=== PATIENT | male | born 1945 | race Caucasian/White ===

== ENCOUNTER 2019-04-22 15:58 | Inpatient (IN) | payer MEDICARE, SELFPAY ==
[2019-04-22 15:59] VITALS: BP 171/101; PULSE 141; RESP 20; TEMP 37.6; O2SAT 92; BMI 31.4
--- NOTE | 2019-04-22 16:01 | ED_ITS ---
Entered by Cassy Ackerman, acting as scribe for Doc Mgcill DO Documented by User: Doc Mcgill DO 04/26/19 07:50 HPI - General Adult General: Chief complaint: Abdominal Pain Stated complaint: ABD PAIN Time Seen by Provider: 04/22/19 16:05 History of Present Illness: HPI narrative: 73 yo male presents with abd pain. Pt states that he has had an impacted colon before. Pt states that he takes mirilax regularly. Pt states that he took double the dose today. Pt states that he has been incontinent urine twice today. MD complaint: abd pain Associated symptoms: Reports nausea; Deny chest pain, dyspnea, malaise, rash or vomiting Review of Systems Const: Denies: fever, chills, body aches, change in appetite, fatigue or malaise ENMT: Denies: throat pain, ear pain, nasal discharge or nasal congestion Card: Denies: chest pain, edema, shortness of breath on exertion or shortness of breath when lying down Resp: Denies: shortness of breath, productive cough or non-productive cough GI: Reports: abdominal pain, nausea and constipation; Denies: vomiting, vomiting blood, coffee grounds in vomit, diarrhea, bloating, blood in stool or black tarry stool : Denies: flank pain, painful urination, urinary frequency or urinary urgency Skin/Breast: Denies: rash or itching PFSH ED PFSH: Statuses (acute, chronic, etc) shown below reflect problem list status as previously entered and may not be historically accurate Medical History Gout (Acute) History of pulmonary embolism (Acute) Rheumatoid arteritis (Acute) Rheumatoid arthritis (Acute) Surgical History History of heart surgery (Acute) S/P CABG x 4 (Acute) Social History Smoking and tobacco status: never smoked Alcohol intake: current Alcohol intake frequency: 0-2 Drinks per Day Marital status: Physical Exam Const: COMMON NORMALS: no apparent distress GENERAL APPEARANCE: cooperative and comfortable ORIENTATION/CONSCIOUSNESS: Yes awake, Yes oriented to person, Yes oriented to place and Yes oriented to time HENMT: COMMON NORMALS: normocephalic, head/scalp atraumatic, hearing grossly normal bilaterally, external ears normal, EAC's normal, TM's normal bilaterally, nasal mucous membranes and turbinates normal, moist oral mucous membranes and oropharynx normal HEAD & SCALP: normocephalic and atraumatic NOSE: nasal mucous membranes and turbinates normal EXTERNAL EAR: Yes external ears normal EXTERNAL AUDITORY CANAL: EAC's normal TYMPANIC MEMBRANE: TM's normal bilaterally Eye: COMMON NORMALS: PERRL, EOMs intact bilaterally, conjunctivae normal and no scleral icterus CONJUNCTIVA: Yes conjunctivae normal PUPIL: Yes PERRL Neck/C-Spine: COMMON NORMALS: full ROM, no lymphadenopathy, supple and no JVD Lymph: LYMPHATIC: no lymphadenopathy noted and no lymphedema noted Resp: COMMON NORMALS: normal respiratory effort, no retractions, no use of accessory muscles and clear to auscultation bilaterally AUSCULTATION: clear to auscultation bilaterally Cardio: COMMON NORMALS: no JVD, regular rate, regular rhythm and no murmurs RATE: regular rate RHYTHM: regular rhythm GI: COMMON NORMALS: soft to palpation AUSCULTATION: Yes normoactive bowel sounds PALPATION: Yes soft, Yes tender (diffuse ) and No guarding Extremity: COMMON NORMALS: normal to inspection, normal capillary refill, no clubbing, cyanosis or edema, no calf tenderness and no pedal edema Neuro: SENSORIUM/ORIENTATION: Yes oriented to person, Yes oriented to place and Yes oriented to time Skin: COMMON NORMALS: no rashes or lesions noted GENERAL SKIN EXAM: no rashes or lesions noted Course ED course: Initial labs ordered by myself care transferred to Dr. Bergeron at change of shift. Vital Signs: Vital signs: Vital Signs Temperature 98.7 F 04/26/19 07:36 Pulse Rate 106 H 04/26/19 07:36 Respiratory Rate 18 04/26/19 07:36 Blood Pressure 138/81 04/26/19 07:36 Pulse Oximetry 94 04/26/19 07:36 MDM - General Adult Lab Data: Labs: Lab Results 04/22/19 04/22/19 04/22/19 Range/Units 16:22 16:22 18:22 WBC 21.0 H (4.0-10.0) 10^3/ uL RBC 4.79 (4.1-5.3) 10^6/u L Hgb 15.4 (11.7-16.6) g/dL Hct 45.0 (42.0-52.0) % MCV 93.9 (80-94) fL MCH 32.2 (28.0-34.0) pg MCHC 34.2 (30.0-36.0) g/dL RDW 12.9 (12.1-15.1) % Plt Count 189 (130-400) 10^3/c mm MPV 10.2 (7.4-10.4) fL Neut % (Auto) 92.0 % Lymph % (Auto) 2.0 % Scott % (Auto) 5.3 % Eos % (Auto) 0.0 % Baso % (Auto) 0.1 % Neut # (Auto) 19.3 H (1.8-7.7) 10^3/u L Lymph # (Auto) 0.4 L (0.8-4.8) 10^3/u L Scott # (Auto) 1.1 H (0.2-0.9) 10^3/u L Eos # (Auto) 0.0 (0.0-0.8) 10^3/u L Baso # (Auto) 0.0 (0.0-0.1) 10^3/u L Nucleated RBC % (a uto) 0 % Nucleated RBCs # 0.0 /100WBC Sodium 136 (136-145) mmol/L Potassium 3.6 (3.5-5.1) mmol/L Chloride 96 L (98-107) mmol/L Carbon Dioxide 24 (22-29) mmol/L Anion Gap 19.6 H (5-19) BUN 23 (8-23) mg/dL Creatinine 1.1 (0.7-1.2) mg/dL Glucose 145 H (65-115) mg/dL Calcium 9.2 (8.5-10.5) mg/dL Total Bilirubin 1.1 (0.15-1.2) mg/dL AST 32 (0-40) U/L ALT 28 (0-41) U/L Alkaline Phosphata se 79 (40-130) IU/L Total Protein 7.3 (6.6-8.7) g/dL Albumin 4.5 (3.5-5.2) g/dL Globulin 2.8 (1.3-4.6) g/dL Lipase 12 L (13-60) U/L Urine Color Yellow (Yellow) Urine Appearance Cloudy (CLEAR) Urine pH 7 (5-7) Ur Specific Gravit y 1.010 (1.005-1.030) Urine Protein Neg (Negative) Urine Glucose (UA) Norm (Normal) Urine Ketones 1+ H (Negative) Urine Occult Blood 3+ H (Negative) Urine Nitrate Positive H (Negative) Urine Bilirubin Neg (NEGATIVE) Urine Urobilinogen Norm (Negative) mg/dL Ur Leukocyte Orin ase 2+ H (Negative) Urine RBC 0-4 H (0-2) /hpf Urine WBC >100 H (0-5) /hpf Ur Squamous Epith Cells 0-4 H (0-5) Urine Bacteria 3+ H (NONE) Influenza Type A A g (Negative) POC Influenza B Ag (Negative) 04/22/19 Range/Units 18:41 WBC (4.0-10.0) 10^3/ uL RBC (4.1-5.3) 10^6/u L Hgb (11.7-16.6) g/dL Hct (42.0-52.0) % MCV (80-94) fL MCH (28.0-34.0) pg MCHC (30.0-36.0) g/dL RDW (12.1-15.1) % Plt Count (130-400) 10^3/c mm MPV (7.4-10.4) fL Neut % (Auto) % Lymph % (Auto) % Scott % (Auto) % Eos % (Auto) % Baso % (Auto) % Neut # (Auto) (1.8-7.7) 10^3/u L Lymph # (Auto) (0.8-4.8) 10^3/u L Scott # (Auto) (0.2-0.9) 10^3/u L Eos # (Auto) (0.0-0.8) 10^3/u L Baso # (Auto) (0.0-0.1) 10^3/u L Nucleated RBC % (a uto) % Nucleated RBCs # /100WBC Sodium (136-145) mmol/L Potassium (3.5-5.1) mmol/L Chloride (98-107) mmol/L Carbon Dioxide (22-29) mmol/L Anion Gap (5-19) BUN (8-23) mg/dL Creatinine (0.7-1.2) mg/dL Glucose (65-115) mg/dL Calcium (8.5-10.5) mg/dL Total Bilirubin (0.15-1.2) mg/dL AST (0-40) U/L ALT (0-41) U/L Alkaline Phosphata se (40-130) IU/L Total Protein (6.6-8.7) g/dL Albumin (3.5-5.2) g/dL Globulin (1.3-4.6) g/dL Lipase (13-60) U/L Urine Color (Yellow) Urine Appearance (CLEAR) Urine pH (5-7) Ur Specific Gravit y (1.005-1.030) Urine Protein (Negative) Urine Glucose (UA) (Normal) Urine Ketones (Negative) Urine Occult Blood (Negative) Urine Nitrate (Negative) Urine Bilirubin (NEGATIVE) Urine Urobilinogen (Negative) mg/dL Ur Leukocyte Orin ase (Negative) Urine RBC (0-2) /hpf Urine WBC (0-5) /hpf Ur Squamous Epith Cells (0-5) Urine Bacteria (NONE) Influenza Type A A g Negative (Negative) POC Influenza B Ag Negative (Negative) Discharge Plan Discharge Patient Disposition: Home, Self-Care Clinical Impression: Constipation Condition: Stable Discharge Diet: Usual diet Discharge Activity: Increase activity as tolerated Discharge Date/Time: 04/22/19 20:25 Coding Level of Care Code ED [employer] Supervisor for Chg Fwd Exam Problem Focused Documented by User: Jairo Bergeron DO 04/22/19 19:59 HPI - General Adult General: Chief complaint: Abdominal Pain Stated complaint: ABD PAIN Time Seen by Provider: 04/22/19 16:05 PFSH ED PFSH: Statuses (acute, chronic, etc) shown below reflect problem list status as previously entered and may not be historically accurate Medical History Gout (Acute) History of pulmonary embolism (Acute) Rheumatoid arteritis (Acute) Rheumatoid arthritis (Acute) Surgical History History of heart surgery (Acute) S/P CABG x 4 (Acute) Social History Smoking and tobacco status: never smoked Alcohol intake: current Alcohol intake frequency: 0-2 Drinks per Day Marital status: Course Vital Signs: Vital signs: Vital Signs Temperature 98.7 F 04/26/19 07:36 Pulse Rate 106 H 04/26/19 07:36 Respiratory Rate 18 04/26/19 07:36 Blood Pressure 138/81 04/26/19 07:36 Pulse Oximetry 94 04/26/19 07:36 MDM - General Adult MDM Narrative: Medical decision making narrative: 73-year-old male with a history of generalized weakness starting today. His temperature is 100. He was tachycardic in the 140s on arrival, after 1.5 L, heart rate is decreased to 115. Blood pressure is 104/60. He has a 3+ leukocyte esterase, positive nitrite in urine. His white blood cell count is 21 with left shift. He will be admitted for UTI with sepsis. Lab Data: Labs: Lab Results 04/22/19 04/22/19 04/22/19 Range/Units 16:22 16:22 18:22 WBC 21.0 H (4.0-10.0) 10^3/ uL RBC 4.79 (4.1-5.3) 10^6/u L Hgb 15.4 (11.7-16.6) g/dL Hct 45.0 (42.0-52.0) % MCV 93.9 (80-94) fL MCH 32.2 (28.0-34.0) pg MCHC 34.2 (30.0-36.0) g/dL RDW 12.9 (12.1-15.1) % Plt Count 189 (130-400) 10^3/c mm MPV 10.2 (7.4-10.4) fL Neut % (Auto) 92.0 % Lymph % (Auto) 2.0 % Scott % (Auto) 5.3 % Eos % (Auto) 0.0 % Baso % (Auto) 0.1 % Neut # (Auto) 19.3 H (1.8-7.7) 10^3/u L Lymph # (Auto) 0.4 L (0.8-4.8) 10^3/u L Scott # (Auto) 1.1 H (0.2-0.9) 10^3/u L Eos # (Auto) 0.0 (0.0-0.8) 10^3/u L Baso # (Auto) 0.0 (0.0-0.1) 10^3/u L Nucleated RBC % (a uto) 0 % Nucleated RBCs # 0.0 /100WBC Sodium 136 (136-145) mmol/L Potassium 3.6 (3.5-5.1) mmol/L Chloride 96 L (98-107) mmol/L Carbon Dioxide 24 (22-29) mmol/L Anion Gap 19.6 H (5-19) BUN 23 (8-23) mg/dL Creatinine 1.1 (0.7-1.2) mg/dL Glucose 145 H (65-115) mg/dL Calcium 9.2 (8.5-10.5) mg/dL Total Bilirubin 1.1 (0.15-1.2) mg/dL AST 32 (0-40) U/L ALT 28 (0-41) U/L Alkaline Phosphata se 79 (40-130) IU/L Total Protein 7.3 (6.6-8.7) g/dL Albumin 4.5 (3.5-5.2) g/dL Globulin 2.8 (1.3-4.6) g/dL Lipase 12 L (13-60) U/L Urine Color Yellow (Yellow) Urine Appearance Cloudy (CLEAR) Urine pH 7 (5-7) Ur Specific Gravit y 1.010 (1.005-1.030) Urine Protein Neg (Negative) Urine Glucose (UA) Norm (Normal) Urine Ketones 1+ H (Negative) Urine Occult Blood 3+ H (Negative) Urine Nitrate Positive H (Negative) Urine Bilirubin Neg (NEGATIVE) Urine Urobilinogen Norm (Negative) mg/dL Ur Leukocyte Orin ase 2+ H (Negative) Urine RBC 0-4 H (0-2) /hpf Urine WBC >100 H (0-5) /hpf Ur Squamous Epith Cells 0-4 H (0-5) Urine Bacteria 3+ H (NONE) Influenza Type A A g (Negative) POC Influenza B Ag (Negative) 04/22/19 Range/Units 18:41 WBC (4.0-10.0) 10^3/ uL RBC (4.1-5.3) 10^6/u L Hgb (11.7-16.6) g/dL Hct (42.0-52.0) % MCV (80-94) fL MCH (28.0-34.0) pg MCHC (30.0-36.0) g/dL RDW (12.1-15.1) % Plt Count (130-400) 10^3/c mm MPV (7.4-10.4) fL Neut % (Auto) % Lymph % (Auto) % Scott % (Auto) % Eos % (Auto) % Baso % (Auto) % Neut # (Auto) (1.8-7.7) 10^3/u L Lymph # (Auto) (0.8-4.8) 10^3/u L Scott # (Auto) (0.2-0.9) 10^3/u L Eos # (Auto) (0.0-0.8) 10^3/u L Baso # (Auto) (0.0-0.1) 10^3/u L Nucleated RBC % (a uto) % Nucleated RBCs # /100WBC Sodium (136-145) mmol/L Potassium (3.5-5.1) mmol/L Chloride (98-107) mmol/L Carbon Dioxide (22-29) mmol/L Anion Gap (5-19) BUN (8-23) mg/dL Creatinine (0.7-1.2) mg/dL Glucose (65-115) mg/dL Calcium (8.5-10.5) mg/dL Total Bilirubin (0.15-1.2) mg/dL AST (0-40) U/L ALT (0-41) U/L Alkaline Phosphata se (40-130) IU/L Total Protein (6.6-8.7) g/dL Albumin (3.5-5.2) g/dL Globulin (1.3-4.6) g/dL Lipase (13-60) U/L Urine Color (Yellow) Urine Appearance (CLEAR) Urine pH (5-7) Ur Specific Gravit y (1.005-1.030) Urine Protein (Negative) Urine Glucose (UA) (Normal) Urine Ketones (Negative) Urine Occult Blood (Negative) Urine Nitrate (Negative) Urine Bilirubin (NEGATIVE) Urine Urobilinogen (Negative) mg/dL Ur Leukocyte Orin ase (Negative) Urine RBC (0-2) /hpf Urine WBC (0-5) /hpf Ur Squamous Epith Cells (0-5) Urine Bacteria (NONE) Influenza Type A A g Negative (Negative) POC Influenza B Ag Negative (Negative) Discharge Plan Discharge Patient Disposition: Home, Self-Care Clinical Impression: Constipation Condition: Stable Discharge Diet: Usual diet Discharge Activity: Increase activity as tolerated Discharge Date/Time: 04/22/19 20:25 Coding Level of Care Code ED [employer] Supervisor for Chg Fwd Exam Problem Focused The documentation recorded by the Tyron bennett Kialy, accurately reflects the service I personally performed and the decisions made by Artem sotelo Curtis L, DO Apr 22, 2019 15:58
--- NOTE | 2019-04-22 16:06 | XR_ITS ---
WS: [id number] KUB HISTORY: 73 years old Male with abd pain KUB no comparison FINDINGS: No abnormal small bowel or large bowel gaseous distention. No obvious urinary type calculus. Levoconv ex spine curvature. No fracture seen. Pelvic phleboliths. XR/XR KUB portable [id number] IMPRESSION: No gross findings of bowel obstruction.
[2019-04-22] MEDS: sodium chloride 0.9% 1,000 ML 999 ML IV ×2 (16:24→18:45)
[2019-04-22 16:31] LABS: Basophils % 0.1 %; Hemoglobin 15.4 g/dL (11.7-16.6); Lymphocytes # 0.4 10^3/uL (0.8-4.8); Mean Corpuscular HGB Conc 34.2 g/dL (30.0-36.0); Mean Corpuscular Hemoglobin 32.2 pg (28.0-34.0); Mean Corpuscular Volume 93.9 fL (80-94); Mean Platelet Volume 10.2 fL (7.4-10.4); Monocytes # 1.1 10^3/uL (0.2-0.9); Monocytes % 5.3 %; Neutrophils # 19.3 10^3/uL (1.8-7.7); Nucleated Red Blood Cells % 0 %; Platelet Count 189 10^3/cmm (130-400); Red Blood Count 4.79 10^6/uL (4.1-5.3); Red Cell Distribution Width 12.9 % (12.1-15.1)
[2019-04-22 16:48] LABS: Alanine Aminotransferase 28 U/L (0-41); Albumin Level 4.5 g/dL (3.5-5.2); Alkaline Phosphatase 79 IU/L (40-130); Anion Gap 19.6 (5-19); Aspartate Amino Transferase 32 U/L (0-40); Blood Urea Nitrogen 23 mg/dL (8-23); Calcium 9.2 mg/dL (8.5-10.5); Carbon Dioxide 24 mmol/L (22-29); Chloride 96 mmol/L (98-107); Globulin 2.8 g/dL (1.3-4.6); Glucose 145 mg/dL (65-115); Lipase 12 U/L (13-60); Potassium 3.6 mmol/L (3.5-5.1); Sodium 136 mmol/L (136-145); Total Bilirubin 1.1 mg/dL (0.15-1.2); Total Protein 7.3 g/dL (6.6-8.7)
--- NOTE | 2019-04-22 17:04 | CTR_ITS ---
PROCEDURE INFORMATION: Exam: CT Abdomen And Pelvis With Contrast Exam date and time: 04/22/2019 5:11 PM Age: 73 years old Clinical indication: Abdominal pain; Localized; Left lower quadrant (llq); Additional info: Abd pain TECHNIQUE: Imaging protocol: Computed tomography of the abdomen and pelvis with intravenous contrast. Total DLP: 1330.67 mGy-cm Radiation optimization: All CT scans at this facility use at least one of these dose optimization techniques: automated exposure control; mA and/or kV adjustment per patient size (includes targeted exams where dose is matched to clinical indication); or iterative reconstruction. Contrast material: OMNI 300; Contrast volume: 95 ml; Contrast route: RT AC; COMPARISON: CR XR KUB portable [id number] 04/22/2019 4:24 PM FINDINGS: Lungs: Mild atelectasis. Liver: Subcentimeter hypodensities in the right liver lobe are too small to characterize but most likely cysts. Gallbladder and bile ducts: Normal. No calcified stones. No ductal dilation. Pancreas: Normal. No ductal dilation. Spleen: Calcified granulomas in the spleen. Adrenals: Normal. No mass. Kidneys and ureters: Normal. No hydronephrosis. Stomach and bowel: Mild diverticulosis of the sigmoid colon the. No obstruction. No mucosal thickening. Appendix: No evidence of appendicitis. Intraperitoneal space: Unremarkable. No free air. No significant fluid collection. Vasculature: Unremarkable. No abdominal aortic aneurysm. Lymph nodes: Unremarkable. No enlarged lymph nodes. Bladder: Unremarkable as visualized. Reproductive: Enlarged inhomogenous prostate. Bones/joints: Sternotomy changes. Mild lumbar scoliosis with degenerative changes. Soft tissues: Unremarkable. CT/CT abdomen pelvis w con* [id number] IMPRESSION: 1. No acute abnormality identified within the abdomen or pelvis. 2. Inhomogenous enlarged prostate. 3. Mild diverticulosis of the distal colon. Radiation Dose CTDIVOL = (mGy): DLP = 1330.67 (mGy-cm)
[2019-04-22] MEDS: iohexol 300 mg/mL 100 mL Btl IV (17:23)
[2019-04-22 18:30] VITALS: BP 100/64; PULSE 112; RESP 20; O2SAT 94
--- NOTE | 2019-04-22 18:35 | XR_ITS ---
WS: [id number] ONE VIEW CHEST HISTORY: 73 years old Male with fever AP upright chest no comparison FINDINGS: No pneumothorax, pleural effusion, or consolidation. Right basilar linear subsegmental atelectasis or scarring. Heart size unremarkable. Central pulmonary vascular prominence. Prior CABG. Moderate right hemidiaphragm elevation. No fracture or destruction seen. XR/XR chest 1V portable [id number] IMPRESSION: Right basilar subsegmental atelectasis and/or scarring, no definite acute cardi opulmonary findings.
[2019-04-22 18:44] LABS: Add Urine Microscopic? YES; Bilirubin Urine Neg (NEGATIVE); Blood Urine 3+ (Negative); Glucose Urine UA Norm (Normal); Ketones Urine 1+ (Negative); Leukocyte Esterase Urine 2+ (Negative); Nitrate Urine Positive (Negative); Protein Urine Neg (Negative); Urine Appearance Cloudy (CLEAR); Urine Color Yellow (Yellow); Urobilinogen Urine Norm (Negative); pH Urine 7 (5-7)
[2019-04-22 18:45] LABS: Add Urine Culture? Yes; Bacteria Urine 3+; RBC Urine 0-4 /hpf (0-2); Squamous Epithelial Cell Urine 0-4 (0-5); WBC Urine >100 /hpf (0-5)
[2019-04-22] MEDS: cefTRIAXone 1,000 MG in sodium chloride 0.9% (plus) 50 ML 100 MG IV (19:06)
[2019-04-22 19:08] LABS: Influenza A by IFA Negative (Negative); Influenza B by IFA Negative (Negative)
[2019-04-22 20:13] VITALS: BP 108/67; PULSE 115; RESP 20; O2SAT 94
--- NOTE | 2019-04-22 20:19 | PC.NURSE ---
Called report to Karen
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
[2019-04-22 20:29] LABS: Lactic Sepsis W/Reflex 2.1 mmol/L (0.5-2.2)
[2019-04-22 20:49] VITALS: BP 101/63; PULSE 135; RESP 18; TEMP 36.9; O2SAT 96
[2019-04-22 20:50] LABS: C Reactive Protein 36.5 mg/L (0.0-4.9)
[2019-04-22 22:17] LABS: Reflex Lactate Order REFLEX LACTIC ORDERD
[2019-04-22] MEDS: lactated ringers 1,000 ML 100 ML IV (22:30)
[2019-04-22] MEDS: enoxaparin 40 mg/0.4 mL Syringe SUBCUT (22:30)
[2019-04-22] MEDS: acetaminophen 325 mg Tablet 650 MG PO (22:59)
[2019-04-22 23:00] VITALS: RESP 20
[2019-04-22] MEDS: morphine 4 mg/mL SDV 1 mL 1 MG IVP (23:00)
[2019-04-22 23:14] VITALS: O2SAT 98
[2019-04-23] VITALS (10 sets, daily range): BP systolic 101–114; BP diastolic 66–74; PULSE 83–139; RESP 16–20; TEMP 36.6–37.7; O2SAT 92–96
--- NOTE | 2019-04-23 01:17 | ECG_ITS ---
Measurements Intervals [place] Rate: 120 P: [place]: 0 QRS: 33 QRSD: 101 T: 91 QT: 352 QTc: 499 ATRIAL FIB WITH RAPID VENTRICULAR RESPONSE WITH ABERRANT CONDUCTION OR VENTRICULAR PREMATURE COMPLEXES NONSPECIFIC ST & T-WAVE ABNORMALITY ABNORMAL RHYTHM ECG No previous ECG available for comparison Electronically Signed On 04-23-2019 22:22:27 SUPPLY OFFICER by Yolanda Lock M.D. [id number]
[2019-04-23] MEDS: lactated ringers 500 ML 999 ML IV (01:30)
[2019-04-23] MEDS: dilTIAZem 30 mg Tablet PO ×2 (02:14→10:05)
[2019-04-23] MEDS: morphine 4 mg/mL SDV 1 mL 1 MG IVP (05:54)
[2019-04-23 06:27] LABS: Lactic Sepsis W/Reflex 1.7 mmol/L (0.5-2.2)
[2019-04-23 06:49] LABS: Basophils % 0.1 %; Hematocrit 42.3 % (42.0-52.0); Hemoglobin 13.8 g/dL (11.7-16.6); Lymphocytes # 1.1 10^3/uL (0.8-4.8); Lymphocytes % 4.9 %; Mean Corpuscular HGB Conc 32.6 g/dL (30.0-36.0); Mean Corpuscular Hemoglobin 32.7 pg (28.0-34.0); Mean Platelet Volume 10.9 fL (7.4-10.4); Monocytes # 1.5 10^3/uL (0.2-0.9); Monocytes % 6.6 %; Neutrophils # 19.4 10^3/uL (1.8-7.7); Neutrophils % 87.9 %; Nucleated Red Blood Cells % 0 %; Platelet Count 164 10^3/cmm (130-400); Red Blood Count 4.22 10^6/uL (4.1-5.3); Red Cell Distribution Width 13.3 % (12.1-15.1); White Blood Count 22.1 10^3/uL (4.0-10.0)
[2019-04-23 06:52] LABS: Mean Corpuscular Volume 100.2 fL (80-94)
[2019-04-23 09:03] LABS: Alanine Aminotransferase 21 U/L (0-41); Albumin Level 3.3 g/dL (3.5-5.2); Alkaline Phosphatase 62 IU/L (40-130); Anion Gap 17.9 (5-19); Aspartate Amino Transferase 24 U/L (0-40); Blood Urea Nitrogen 14 mg/dL (8-23); Calcium 8.5 mg/dL (8.5-10.5); Carbon Dioxide 23 mmol/L (22-29); Chloride 102 mmol/L (98-107); Globulin 2.3 g/dL (1.3-4.6); Glucose 126 mg/dL (65-115); Magnesium 1.8 mg/dL (1.7-2.3); Phosphorus 3.2 mg/dL (2.5-4.5); Potassium 3.9 mmol/L (3.5-5.1); Sodium 139 mmol/L (136-145)
[2019-04-23 09:30] LABS: Total Protein 5.6 g/dL (6.6-8.7)
[2019-04-23] MEDS: allopurinol 300 mg Tablet 450 MG PO (10:06)
[2019-04-23] MEDS: cholecalciferol (vitamin D3) 5,000 unit Tablet 5000 UNIT PO (10:08)
[2019-04-23] MEDS: thiamine 100 mg Tablet 250 MG PO (10:08)
[2019-04-23] MEDS: tamsulosin 0.4 mg Capsule PO (12:10)
[2019-04-23] MEDS: lactated ringers 1,000 ML 100 ML IV (12:10)
--- NOTE | 2019-04-23 13:03 | P.PN_ITS ---
Subjective Subjective: Interval history: Admitted overnight. H&P and labs noted. On examination this morning patient is lying comfortably in bed. States he still having pain and burning sensation in his rectal area especially when he is having bowel movements. Denies of having any chills, nausea, vomiting, headache, palpitations. Overnight patient also developed atrial fibrillation which was self-limiting. Vitals/I&O/Wt Last Vital Signs Temp 97.9 F 04/23/19 11:49 Pulse 83 04/23/19 11:49 Resp 18 04/23/19 11:49 BP 111/67 04/23/19 11:49 Pulse Ox 92 04/23/19 11:49 04/22/19 04/23/19 04/23/19 22:59 06:59 14:59 Intake Total 1000 / 1000 700 / 1700 1240 / 1240 Output Total 275 / 275 100 / 100 Balance 1000 / 1000 425 / 1425 1140 / 1140 Weight last 48 hrs Weight 96.615 kg Physical Exam Const: COMMON NORMALS: no apparent distress and oriented x3 GENERAL APPEARANCE: cooperative and comfortable HENMT: COMMON NORMALS: normocephalic HEAD & SCALP: normocephalic Eye: COMMON NORMALS: PERRL, EOMs intact bilaterally and no papilledema GENERAL EYE: normal appearance of both eyes PUPIL: Yes PERRL DIRECT OPHTHALMOSCOPY: Yes no papilledema Neck/C-Spine: COMMON NORMALS: full ROM, no lymphadenopathy, no JVD and thyroid normal THYROID: thyroid normal Lymph: LYMPHATIC: no lymphadenopathy noted Resp: COMMON NORMALS: normal respiratory effort, no retractions, no use of accessory muscles and clear to auscultation bilaterally AUSCULTATION: clear to auscultation bilaterally Cardio: COMMON NORMALS: no JVD, regular rate, regular rhythm, S1 normal heart sound, S2 normal heart sound, no gallops, no clicks and no murmurs RATE: regular rate RHYTHM: regular rhythm HEART SOUNDS: S1 normal and S2 normal GI: COMMON NORMALS: normal to inspection, nondistended, normoactive bowel sounds, soft to palpation, non-tender and no hepatosplenomegaly PALPATION: Yes soft and Yes no hepatosplenomegaly RECTAL EXAM: Yes visual inspection normal, Yes normal sphincter tone, Yes heme negative stool and Yes prostate abnormal (Edematous) enlarged, tender and boggy : COMMON NORMALS: Yes no CVA tenderness BLADDER/KIDNEY EXAM: Yes no CVA tenderness Back/Pelvis: COMMON NORMALS: no CVA tenderness and thoracic and lumbar spine normal to inspection Extremity: COMMON NORMALS: normal to inspection, full ROM and no pedal edema Neuro: COMMON NORMALS: oriented x3, CN's II-XII intact bilaterally, moves all extremities and no focal motor deficits Psych: COMMON NORMALS: mental status grossly normal, thought process normal and cooperative THOUGHT PROCESS: normal thought process Data : 04/23/19 05:53 04/23/19 08:01 Micro: Microbiology 04/22/19 20:22 Blood Culture - Preliminary Blood SPECIMEN COLLECTED 04/22/19 20:07 Blood Culture - Preliminary Blood SPECIMEN COLLECTED A&P Assessment and plan (1) Acute bacterial prostatitis: Status: Acute Code(s): N41.0 - Acute prostatitis (2) Constipation: Status: Acute Code(s): K59.00 - Constipation, unspecified (3) History of pulmonary embolism: Status: Acute Code(s): Z86.711 - Personal history of pulmonary embolism (4) S/P CABG x 4: Status: Acute Code(s): Z95.1 - Presence of aortocoronary bypass graft (5) Gout: Hold off on colchicine Status: Acute Code(s): M10.9 - Gout, unspecified (6) Rheumatoid arthritis: Status: Acute Code(s): M06.9 - Rheumatoid arthritis, unspecified (7) Paroxysmal A-fib: Status: Acute Code(s): I48.0 - Paroxysmal atrial fibrillation Additional A&P Information Sepsis secondary to acute bacterial prostatitis: Sepsis due to tachycardia, elevated white count,. Continue with Ringer lactate at 100 cc/h. Patient was started on imipenem last night. On review of his chart we do not have any cultures in the past but patient was on methotrexate and prednisone as an outpatient for rheumatoid arthritis which makes him immunocompromised. We will add vancomycin at renal dose for now. Will de-escalate antibiotics as per the results of urine and blood cultures. MRSA swab. Monitor vitals keeping mean artery pressures over 65 Hg. We will add Flomax to the regimen. Aggressive bowel regimen. Rheumatoid arthritis: For now we will hold off on methotrexate and prednisone given active infections. History of CABG: Continue with aspirin. Patient is not on statin as an outpatient will check lipid panel tomorrow morning and start on statins as required. Paroxysmal A. fib: Most likely due to stress from sepsis. Given chances of septic shock will hold off on Cardizem standing for now. We will start patient on Lopressor 2.5 mg every 6 hours as needed for heart rate of more than 110 when systolic blood pressure is more than 110 mmHg. Continue on telemetry monitoring. Full code Regular diet Lovenox for DVT prophylaxis. Attestations 2 Medical Necessity Statement*: Needs further hospitalization for management of sepsis due to prostatitis. Time Spent in Patient Care: Greater than 35 minutes Coding Level of Care Code Acute Newspaper Correspondent for [facility] Fwd Diagnoses Acute bacterial prostatitis N41.0 Constipation K59.00 History of pulmonary embolism Z86.711 S/P CABG x 4 Z95.1 Gout M10.9 Rheumatoid arthritis M06.9 Paroxysmal A-fib I48.0
[2019-04-23] MEDS: ondansetron 2 mg/ML SDV 2 mL 4 MG IVP (13:47)
--- NOTE | 2019-04-23 14:46 | PC.CHAP ---
Pastoral Care Encounter/Spiritual Assessment Type of Contact [x] Declined plate glass installer visit [] Patient/Family/Request visit [] Outpatient visit [] Follow-up visit [] Physician referral [] Code/Alert [] Routine visit [] Staff referral [] Actively dying [] Patient sleeping [] Family support [] [] Out of room [] Palliative care [] [] Receiving care in room [] Pre-surgical visit [] Trauma [] Long length of stay [] ICU visit [] Other: Relational/Emotional Strength [] Patient feels connected with others/family/visitors/staff [] Distress [] Loneliness/isolation [] Abandonment Spirituality of Patient [] Person of Luh [] Attends Sikh of their Luh [] Believes in Prayer [] Reads Bible or Methodist materials [] There are Spiritual issues to be addressed Rest Room Maid Interventions [] Prayer [] Active listening [] Non-anxious presence [] Spiritual/emotional support [] Crisis/trauma care [] Spiritual counseling [] Bereavement support [] Provided bereavement packet [] Provided Bible/devotional materials [] Provided toy/stuffed animal, coloring book to patient or family member [] Provided Communion [] Anointing/[place] [] Salvation [] Completed spiritual assessment [] Other: Impact on Illness or Injury [] Angry [] Fearful [] Anxious [] Often cries [] Exhaustion [] Unable to work [] Unable to attend congregation [] Unable to walk/stand [] Unable to read [] Unable to drive [] Unable to eat/drink [] Unable to sleep [] Unable to be with family [] Patient intubated [] Other: Summary Time spent with patient
[2019-04-23] MEDS: docusate sodium 100 mg Capsule PO (18:05)
[2019-04-23] MEDS: acetaminophen 325 mg Tablet 650 MG PO (20:25)
[2019-04-23] MEDS: enoxaparin 40 mg/0.4 mL Syringe SUBCUT (21:56)
[2019-04-23] MEDS: sennosides 8.6 mg Tablet 17.2 MG PO (21:57)
[2019-04-24] MEDS: lactated ringers 1,000 ML 100 ML IV ×3 (00:39→21:35)
[2019-04-24 04:00] VITALS: BP 102/73; PULSE 130; RESP 16; TEMP 37.1; O2SAT 93
[2019-04-24 05:57] LABS: Basophils % 0.2 %; Eosinophils # 0.1 10^3/uL (0.0-0.8); Eosinophils % 0.7 %; Hematocrit 36.7 % (42.0-52.0); Hemoglobin 12.4 g/dL (11.7-16.6); Lymphocytes # 0.8 10^3/uL (0.8-4.8); Lymphocytes % 6.1 %; Mean Corpuscular HGB Conc 33.8 g/dL (30.0-36.0); Mean Corpuscular Hemoglobin 32.6 pg (28.0-34.0); Mean Corpuscular Volume 96.6 fL (80-94); Mean Platelet Volume 10.7 fL (7.4-10.4); Monocytes # 0.8 10^3/uL (0.2-0.9); Monocytes % 6.4 %; Neutrophils % 86.1 %; Nucleated Red Blood Cells % 0 %; Platelet Count 136 10^3/cmm (130-400); Red Cell Distribution Width 13.2 % (12.1-15.1); White Blood Count 12.7 10^3/uL (4.0-10.0)
[2019-04-24 06:15] LABS: Alanine Aminotransferase 21 U/L (0-41); Albumin Level 3.2 g/dL (3.5-5.2); Alkaline Phosphatase 60 IU/L (40-130); Anion Gap 15.8 (5-19); Aspartate Amino Transferase 28 U/L (0-40); Blood Urea Nitrogen 13 mg/dL (8-23); Calcium 8.5 mg/dL (8.5-10.5); Carbon Dioxide 23 mmol/L (22-29); Chloride 101 mmol/L (98-107); Globulin 2.3 g/dL (1.3-4.6); Glucose 123 mg/dL (65-115); Potassium 3.8 mmol/L (3.5-5.1); Sodium 136 mmol/L (136-145); Total Bilirubin 0.8 mg/dL (0.15-1.2); Total Protein 5.5 g/dL (6.6-8.7)
[2019-04-24 06:16] LABS: Magnesium 1.7 mg/dL (1.7-2.3); Phosphorus 2.3 mg/dL (2.5-4.5)
[2019-04-24] MEDS: acetaminophen 325 mg Tablet 650 MG PO ×3 (06:17→19:11)
[2019-04-24 08:00] VITALS: BP 113/75; PULSE 120; RESP 16; TEMP 37; O2SAT 93
[2019-04-24] MEDS: tamsulosin 0.4 mg Capsule PO (08:30)
[2019-04-24] MEDS: thiamine 100 mg Tablet 250 MG PO (08:30)
[2019-04-24] MEDS: docusate sodium 100 mg Capsule PO ×2 (08:31→17:36)
[2019-04-24] MEDS: lactulose oral liq 20 gm/30 mL UDC 10 GM PO (08:31)
[2019-04-24] MEDS: allopurinol 300 mg Tablet 450 MG PO (08:31)
[2019-04-24] MEDS: cholecalciferol (vitamin D3) 5,000 unit Tablet 5000 UNIT PO (08:33)
[2019-04-24 11:22] VITALS: BP 124/79; PULSE 123; RESP 16; TEMP 36.7; O2SAT 94
[2019-04-24 11:55] LABS: Vancomycin Trough 11.8 ug/mL (10-15)
[2019-04-24 15:50] VITALS: BP 131/86; PULSE 116; RESP 16; TEMP 37.1; O2SAT 94
[2019-04-24 18:12] VITALS: BP 130/80; PULSE 138; RESP 20; TEMP 36.6; O2SAT 96
[2019-04-24] MEDS: metoprolol tartrate 1 mg/1 mL SDV 5 mL 5 MG IV (18:17)
--- NOTE | 2019-04-24 18:40 | P.PN_ITS ---
Subjective Subjective: Interval history: Michael reports he is doing okay. It still lomeli some when he urinates. He reports significant constipation wishes he could have a bowel movement. No chest discomfort or shortness of breath. Medications: Reviewed: Yes Vitals/I&O/Wt Last Vital Signs Temp 97.9 F 04/24/19 18:12 Pulse 138 H 04/24/19 18:12 Resp 20 H 04/24/19 18:12 BP 130/80 04/24/19 18:12 Pulse Ox 96 04/24/19 18:12 04/24/19 04/24/19 04/24/19 06:59 14:59 22:59 Intake Total 350 / 3970 1330 / 1330 240 / 1570 Output Total 275 / 725 600 / 600 Balance 75 / 3245 730 / 730 240 / 970 Weight last 48 hrs Weight 97.522 kg Physical Exam Narrative: EXAM NARRATIVE: General exam no apparent distress Cardiovascular irregular, irregular and tachycardic. Monitor shows atrial fibrillation Lungs clear Abdomen is soft with positive bowel sounds Extremities no cyanosis clubbing or edema Data : 04/24/19 05:50 04/24/19 05:50 Micro: Microbiology 04/23/19 20:45 MRSA Culture - Final Nose 04/22/19 18:22 Urine Culture - Preliminary Urine,Clean Catch Gram Negative Rods 04/22/19 20:22 Blood Culture - Preliminary Blood NEGATIVE TO DATE 04/22/19 20:07 Blood Culture - Preliminary Blood NEGATIVE TO DATE A&P Assessment and plan (1) Acute bacterial prostatitis: Improving. White blood cell count decreasing. Symptoms less. Currently on vancomycin, Primaxin. Flomax was added during this hospital stay Urine culture growing gram-negative samaria, identification and sensitivity pending. Status: Acute Code(s): N41.0 - Acute prostatitis (2) Constipation: Increase senna Add MiraLAX Status: Acute Code(s): K59.00 - Constipation, unspecified (3) History of pulmonary embolism: Currently on DVT prophylaxis, Lovenox Status: Acute Code(s): Z86.711 - Personal history of pulmonary embolism (4) S/P CABG x 4: Status: Acute Code(s): Z95.1 - Presence of aortocoronary bypass graft (5) Gout: Hold off on colchicine Status: Acute Code(s): M10.9 - Gout, unspecified (6) Rheumatoid arthritis: Status: Acute Code(s): M06.9 - Rheumatoid arthritis, unspecified (7) Paroxysmal A-fib: Now back in atrial fibrillation. Will initiate metoprolol 25 mg twice daily. If this rhythm persists consider full dose anticoagulation. I have discussed briefly with patient and he is contemplating. Status: Acute Code(s): I48.0 - Paroxysmal atrial fibrillation Additional A&P Information Sepsis secondary to prostatitis, improving History of rheumatoid arthritis Lovenox for DVT prophylaxis. Attestations Medical Necessity Statement*: Needs continued hospitalization for IV antibiotics secondary to sepsis Coding Level of Care Code Acute Deposit Refund Clerk for [facility] Fwd Diagnoses Acute bacterial prostatitis N41.0 Constipation K59.00 History of pulmonary embolism Z86.711 S/P CABG x 4 Z95.1 Gout M10.9 Rheumatoid arthritis M06.9 Paroxysmal A-fib I48.0
--- NOTE | 2019-04-24 18:48 | ECG_ITS ---
Measurements Intervals [place] Rate: 97 P: [place]: 0 QRS: 41 QRSD: 91 T: 58 QT: 356 QTc: [address] DEPRESSION [0.025+ mV ST DEPRESSION] ABNORMAL RHYTHM ECG Compared to ECG 04/23/2019 01:27:51 ST (T wave) deviation now present Aberrant conduction of supraventricular beat(s) no longer present Ventricular premature complex(es) no longer present T-wave abnormality no longer present Electronically Signed On 04-24-2019 20:09:22 DATA STEWARD by Yolanda Lock M.D. [id number]
[2019-04-24 20:00] VITALS: BP 115/77; PULSE 84; RESP 28; TEMP 37.3; O2SAT 91
[2019-04-24] MEDS: enoxaparin 40 mg/0.4 mL Syringe SUBCUT (21:36)
[2019-04-25] VITALS (8 sets, daily range): BP systolic 93–123; BP diastolic 61–80; PULSE 87–129; RESP 17–22; TEMP 36.7–37.4; O2SAT 94–96
[2019-04-25] MEDS: metoprolol tartrate 1 mg/1 mL SDV 5 mL 5 MG IV (02:17)
[2019-04-25 06:35] LABS: Basophils % 0.4 %; Eosinophils # 0.1 10^3/uL (0.0-0.8); Hematocrit 35.5 % (42.0-52.0); Hemoglobin 12.2 g/dL (11.7-16.6); Lymphocytes # 0.7 10^3/uL (0.8-4.8); Lymphocytes % 7.8 %; Mean Corpuscular HGB Conc 34.4 g/dL (30.0-36.0); Mean Corpuscular Hemoglobin 31.6 pg (28.0-34.0); Mean Platelet Volume 10.6 fL (7.4-10.4); Monocytes # 0.7 10^3/uL (0.2-0.9); Neutrophils # 6.8 10^3/uL (1.8-7.7); Neutrophils % 82.3 %; Nucleated Red Blood Cells % 0 %; Platelet Count 140 10^3/cmm (130-400); Red Blood Count 3.86 10^6/uL (4.1-5.3); Red Cell Distribution Width 12.9 % (12.1-15.1); White Blood Count 8.3 10^3/uL (4.0-10.0)
[2019-04-25 06:53] LABS: Anion Gap 18.8 (5-19); Blood Urea Nitrogen 11 mg/dL (8-23); Calcium 8.6 mg/dL (8.5-10.5); Carbon Dioxide 22 mmol/L (22-29); Chloride 101 mmol/L (98-107); Creatinine Clr Calc Pharmacy 94.7175; Glucose 112 mg/dL (65-115); Osmolality Calculated 283 mOsm/kg (285-295); Potassium 3.8 mmol/L (3.5-5.1); Sodium 138 mmol/L (136-145)
[2019-04-25 07:33] LABS: Magnesium 1.8 mg/dL (1.7-2.3); Phosphorus 2.5 mg/dL (2.5-4.5)
[2019-04-25] MEDS: acetaminophen 325 mg Tablet 650 MG PO (07:58)
[2019-04-25] MEDS: tamsulosin 0.4 mg Capsule PO (08:45)
[2019-04-25] MEDS: thiamine 100 mg Tablet 250 MG PO (08:45)
[2019-04-25] MEDS: allopurinol 300 mg Tablet 450 MG PO (08:45)
[2019-04-25] MEDS: metoprolol tartrate 25 mg Tablet PO ×2 (08:46→12:25)
[2019-04-25] MEDS: cholecalciferol (vitamin D3) 5,000 unit Tablet 5000 UNIT PO (08:48)
[2019-04-25] MEDS: lactated ringers 1,000 ML 100 ML IV (08:50)
--- NOTE | 2019-04-25 10:00 | PC.SOCIAL ---
IMM Page 2 of IMM explained to and signed by patient. He verbalizes understanding. Initialed, dated, and timed and placed in chart. Copy provided to patient.
[2019-04-25] MEDS: apixaban 5 mg Tablet PO ×2 (12:25→17:44)
--- NOTE | 2019-04-25 15:00 | USCV_ITS ---
Michael Christian Age: 73 Gender: M : 1945 Exam Date: 04/25/2019 15:07 Ordering Phys: Yosi Hayes MD Technologist: Janes Velazquez Exam Location: [facility] [place] Indication: BP: 130 / 89 HR: 56 Rhythm: Sinus Technical Quality: Adequate MEASUREMENTS (Male / Female) Normal Values 2D ECHO LV Diastolic Diameter PLAX 4.2 cm 4.2 - 5.9 / 3.9 - 5.3 cm LV Systolic Diameter PLAX 2.4 cm IVS Diastolic Thickness 0.9 cm 0.6 - 1.0 / 0.6 - 0.9 cm IVS Systolic Thickness 1.5 cm LVPW Diastolic Thickness 0.8 cm 0.6 - 1.0 / 0.6 - 0.9 cm LVPW Systolic Thickness 1.1 cm LVOT Diameter 2.0 cm LV Ejection Fraction 2D Teich 74.4 % LV Ejection Fraction MOD 2C 66.4 % LV Ejection Fraction 2C AL 65.9 % LA Diameter 5.0 cm Aorta at Sinotubular Diameter 3.3 cm M-MODE LV Diastolic Diameter MM 6.3 cm 4.2 - 5.9 / 3.9 - 5.3 cm LV Systolic Diameter MM 4.4 cm LV Ejection Fraction MM Teich 55.2 % IVS Diastolic Thickness MM 0.8 cm 0.6 - 1.0 / 0.6 - 0.9 cm IVS Systolic Thickness MM 1.6 cm LVPW Diastolic Thickness MM 1.4 cm 0.6 - 1.0 / 0.6 - 0.9 cm LVPW Systolic Thickness MM 1.7 cm RV Diastolic Diameter MM 1.7 cm Aortic Annulus Diameter 4.1 cm LA Ao Ratio MM 1.2 MV E Point Septal Separation 0.9 cm DOPPLER AV Peak Velocity 118.0 cm/s LVOT Peak Velocity 89.0 cm/s AV Area Cont Eq vti 2.8 cm squared AV Area Cont Eq pk 2.4 cm squared MV Area PHT 5.0 cm squared Mitral E to A Ratio 3.1 MV E' Velocity 18.0 cm/s Mitral E to MV E' Ratio 7.3 Mitral E to LV E' Lateral Ratio 5.8 Mitral E to LV E' Septal Ratio 9.9 TR Peak Velocity 260.0 cm/s TR Peak Gradient 27.0 mmHg TV Peak E Velocity 120.0 cm/s Right Atrial Pressure 3.0 mmHg Pulmonary Artery Systolic Pressu 30.0 mmHg FINDINGS Left Ventricle Normal LV size with slightly diminished ejection fraction around 50%. Mild diffuse hypokinesia of the inferior wall and the anteroseptal segments Right Ventricle Normal right ventricular size and systolic function, RVSP 30 mmHg. Right Atrium Mildly increased right atrial size. Left Atrium Moderately increased left atrial size. Mitral Valve Mild mitral valve regurgitation. Aortic Valve Thickened aortic valve. Tricuspid Valve No Gross abnormalities noted.trace to mild tricuspid valve regurgitation. Pulmonic Valve Pulmonic valve not well visualized. Pericardium No pericardial effusion. Aorta Normal aortic annulus size. CONCLUSIONS Normal LV size with slightly diminished ejection fraction around 50%. Mild diffuse hypokinesia of the inferior wall and the anteroseptal segments. Moderately increased left atrial size. Mildly increased right atrial size. Mild mitral valve regurgitation. Thickened aortic valve. There is no pericardial effusion. There are no intracardiac masses. Trace to mild tricuspid valve regurgitation. Estimated pulmonary artery peak systolic pressure 30 mmHg No previous study is available for comparison. Dr Godfrey Avalos MD FACC (Electronically Signed) Final Date: 25 April 2019 23:40 S
[2019-04-25] MEDS: digoxin 250 mcg/ml INJ 2 mL IVP (17:29)
--- NOTE | 2019-04-25 17:38 | P.PN_ITS ---
Subjective Subjective: Interval history: Michael reports he feels quite a bit better. Still some burning with urination. Denies any palpitations. Still with some tachycardia at times. Medications: Reviewed: Yes Vitals/I&O/Wt Last Vital Signs Temp 98.0 F 04/25/19 15:13 Pulse 129 H 04/25/19 17:33 Resp 20 H 04/25/19 15:13 BP 93/61 04/25/19 15:13 Pulse Ox 95 04/25/19 15:13 04/25/19 04/25/19 04/25/19 06:59 14:59 22:59 Intake Total 350 / 3720 1600 / 1600 Output Total 100 / 925 Balance 250 / 2795 1600 / 1600 Weight last 48 hrs Weight 97.522 kg Physical Exam Narrative: EXAM NARRATIVE: General exam no apparent distress Cardiovascular irregular, irregular and tachycardic. Monitor shows atrial fibrillation Lungs clear Abdomen is soft with positive bowel sounds Extremities no cyanosis clubbing or edema Data : 04/25/19 06:10 04/25/19 06:10 Micro: Microbiology 04/22/19 18:22 Urine Culture - Final Urine,Clean Catch Escherichia coli 04/23/19 20:45 MRSA Culture - Final Nose A&P Assessment and plan (1) Acute bacterial prostatitis: Improving. White blood cell count decreasing. Symptoms less. Currently on vancomycin, Primaxin. Flomax was added during this hospital stay Urine culture grew E. coli, pansensitive Discontinue vancomycin Status: Acute Code(s): N41.0 - Acute prostatitis (2) Constipation: Increase senna Add MiraLAX Patient reports he is now having bowel movements Status: Acute Code(s): K59.00 - Constipation, unspecified (3) History of pulmonary embolism: Currently on apixaban Status: Acute Code(s): Z86.711 - Personal history of pulmonary embolism (4) S/P CABG x 4: Status: Acute Code(s): Z95.1 - Presence of aortocoronary bypass graft (5) Gout: Stable without symptoms currently Status: Acute Code(s): M10.9 - Gout, unspecified (6) Rheumatoid arthritis: Status: Acute Code(s): M06.9 - Rheumatoid arthritis, unspecified (7) Paroxysmal A-fib: Continues to have some issue with rhythm control, and tachycardia. Metoprolol was increased to 50 mg twice daily. Will give 1 dose of digoxin IV Check echocardiogram. This is been taken, and we are awaiting report Status: Acute Code(s): I48.0 - Paroxysmal atrial fibrillation Additional A&P Information Sepsis secondary to prostatitis, improving History of rheumatoid arthritis Eliquis for DVT prophylaxis Discharge when heart rate is under control. Will need follow-up with cardiology clinic. Attestations Medical Necessity Statement*: Needs continued hospitalization for adjustment of medications for paroxysmal atrial fibrillation with rapid ventricular rate. 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
[2019-04-25] MEDS: metoprolol tartrate 50 mg Tablet PO (17:44)
[2019-04-26] VITALS: BP 113/70; PULSE 87; RESP 20; TEMP 37.2; O2SAT 96
[2019-04-26] MEDS: digoxin 250 mcg/ml INJ 2 mL IVP (01:02)
[2019-04-26 04:00] VITALS: BP 124/82; PULSE 98; RESP 18; TEMP 36.7; O2SAT 94
[2019-04-26 07:36] VITALS: BP 138/81; PULSE 106; RESP 18; TEMP 37.1; O2SAT 94
[2019-04-26] MEDS: polyethylene glycol 3350 Pkt 17 gm PO (08:12)
[2019-04-26] MEDS: lactulose oral liq 20 gm/30 mL UDC 10 GM PO (08:13)
[2019-04-26] MEDS: tamsulosin 0.4 mg Capsule PO (08:14)
[2019-04-26] MEDS: docusate sodium 100 mg Capsule PO (08:14)
[2019-04-26] MEDS: allopurinol 300 mg Tablet 450 MG PO (08:14)
[2019-04-26] MEDS: sennosides 8.6 mg Tablet 17.2 MG PO (08:14)
[2019-04-26] MEDS: metoprolol tartrate 50 mg Tablet PO (08:15)
[2019-04-26] MEDS: thiamine 100 mg Tablet 250 MG PO (08:15)
[2019-04-26] MEDS: apixaban 5 mg Tablet PO (08:16)
[2019-04-26] MEDS: cholecalciferol (vitamin D3) 5,000 unit Tablet 5000 UNIT PO (08:22)
--- NOTE | 2019-04-26 10:13 | PM.DCS ---
Discharge Providers Date of Admission: 04/22/19 20:06 Date of Discharge: April 26, 2019 Attending Provider at Admission: Ryan Cristina MD Attending Provider at Discharge: Yosi Hayes MD Diagnoses at Discharge Discharge Diagnosis (1) Acute bacterial prostatitis: Status: Acute Problem details: Versus UTI. Will discharge on Cipro for 10 more days. Primary care provider can consider urology referral if appropriate (2) Constipation: Status: Acute Problem details: Improved (3) History of pulmonary embolism: Status: Acute Problem details: Will go on anticoagulation, secondary to atrial fibrillation (4) S/P CABG x 4: Status: Acute Problem details: Echocardiogram performed this hospital stay with EF of 50% (5) Gout: Status: Acute (6) Rheumatoid arthritis: Status: Acute Problem details: Methotrexate held secondary to infection. Primary care provider to decide when restart should occur (7) Paroxysmal A-fib: Status: Acute Problem details: Digoxin, metoprolol added. Anticoagulation with Eliquis. Follow-up with cardiology and primary. Reason for Visit Reason for Visit: Reason For Visit: UTI, SEPSIS, CONSTIPATION Hospital Course Discharge Summary: Michael presented to the hospital with history of fever chills and perianal pain. He was having burning with urination. He was also found to be in atrial fibrillation with rapid ventricular rate. He was placed on Primaxin, rehydrated. In regards to infection he gradually improved. Urine eventually grew out E. coli, pansensitive. During hospital stay he reported long history of constipation and no recent colonoscopy. We discussed this would need to be performed as an outpatient. During his hospital stay he also had recurrent paroxysmal atrial fibrillation, necessitating addition of metoprolol and digoxin to his regimen. With this at discharge his baseline heart rate was 85, atrial fibrillation. I have visited with him the risks and benefits of anticoagulation, and he opted to start this in the form of apixaban. By end of discharge she was afebrile, up and ambulating in the halls without difficulty. He will discharge to complete 10 more days of ciprofloxacin. Physical Exam Narrative: EXAM NARRATIVE: General exam no apparent distress Cardiovascular irregular, irregular Lungs clear Abdomen is soft with positive bowel sounds Extremities no cyanosis clubbing or edema Discharge Data Data Completed and Pending: Completed Studies During Hospitalization Category Date Time Status CT abdomen pelvis w con* [id number] Stat Cat Scan 04/22/19 17:04 Completed XR KUB portable 7 [id number] Stat Exams 04/22/19 16:06 Completed XR chest 1V montserrat ble [id number] Stat Exams 04/22/19 18:35 Completed CV echo complete* [id number] Routine Ultrasound 04/25/19 15:00 Completed Pending at discharge Category Date Time Status Blood Culture Rou jenni Lab 04/22/19 20:22 Results Vitals: Last Vital Signs Temp 98.7 F 04/26/19 07:36 Pulse 106 H 04/26/19 07:36 Resp 18 04/26/19 07:36 BP 138/81 04/26/19 07:36 Pulse Ox 94 04/26/19 07:36 Discharge Plan Discharge Patient Disposition: Home, Self-Care Condition: Stable Prescriptions: New magnesium citrate Solution 150 ml PO BID PRN (Reason: constipation) Qty: 296 RF: 0 digoxin 250 mcg (0.25 mg) Tablet 250 mcg PO DAILY Qty: 30 RF: 0 tamsulosin 0.4 mg Capsule 0.4 mg PO DAILY Qty: 30 RF: 0 metoprolol tartrate 50 mg Tablet 50 mg PO BID Qty: 60 RF: 0 Eliquis 5 mg Tablet 5 mg PO BID Qty: 60 RF: 0 Cipro 500 mg tablet 500 mg PO BID Qty: 20 RF: 0 Continued aspirin [Adult Aspirin Regimen] 81 mg tablet,delayed release (DR/EC) 81 mg PO QDAY RF: 0 Vitamin B-1 250 mg Tablet 250 mg PO DAILY RF: 0 folic acid 400 mcg Tablet 0.4 mg PO DAILY RF: 0 allopurinol 300 mg Tablet 450 mg PO DAILY RF: 0 colchicine 0.6 mg Tablet 0.6 mg PO BID RF: 0 Multivitamin 50 Plus Tablet 1 tab PO DAILY RF: 0 Vitamin D3 125 mcg (5,000 unit) Tablet 125 mcg PO DAILY RF: 0 Discontinued methotrexate sodium 2.5 mg tablet 15 mg PO .weekly RF: 0 prednisone 5 mg tablet 5 mg PO QDAY RF: 0 Discharge Orders: Discharge Order (Routine); Ordered 04/26/19 Ordered By: Yosi Hayes Referrals: Danelle Heredia PA [Staff Physician] - 1-3 days (Follow-up with primary care provider 2 days with visit, digoxin level) Discharge Diet: Usual diet Discharge Activity: Increase activity as tolerated Activity Restrictions/Additional Instructions: Follow-up with your primary care physician to arrange for colonoscopy Take all medicine as prescribed Arrange follow-up with cardiology clinic, 2 weeks, atrial fibrillation Discussed with your primary provider when methotrexate, prednisone should be restarted Discharge Attestations Time Spent in Discharge Care*: greater than 30 min Quality Metrics Clinical Quality Measures During this hospital stay, did patient experience: None Coding Level of Care Code Acute [employer] for [facility] Fwd Diagnoses Acute bacterial prostatitis N41.0 Constipation K59.00 History of pulmonary embolism Z86.711 S/P CABG x 4 Z95.1 Gout M10.9 Rheumatoid arthritis M06.9 Paroxysmal A-fib I48.0
[2019-04-26] MEDS: digoxin 250 mcg Tablet PO (10:24)
[2019-04-26 10:34] VITALS: BP 138/81; PULSE 106; RESP 18; TEMP 37.1; O2SAT 94
== END 2019-04-26 11:32 | disposition home or self-care (01) | DRG 872 ==
LOC: ER 20:19 → MEDSURG 20:19
PROVIDERS: Family Medicine; Student in an Organized Health Care Education/Training Program; Admitting Provider Family Medicine; Emergency Provider Emergency Medicine; Visit Provider Internal Medicine
DX: A41.51 Sepsis due to Escherichia coli [E. coli] (principal); N41.0 Acute prostatitis; N39.0 Urinary tract infection, site not specified; I48.92 Unspecified atrial flutter; I25.10 Atherosclerotic heart disease of native coronary artery without angina pectoris; Z95.1 Presence of aortocoronary bypass graft; M06.9 Rheumatoid arthritis, unspecified; I48.0 Paroxysmal atrial fibrillation; M10.9 Gout, unspecified; Z86.711 Personal history of pulmonary embolism; K59.09 Other constipation; K58.1 Irritable bowel syndrome with constipation; Z88.0 Allergy status to penicillin; Z91.011 Allergy to milk products; Z79.82 Long term (current) use of aspirin; Z79.01 Long term (current) use of anticoagulants; Z79.899 Other long term (current) drug therapy
CPT/HCPCS: 12345; 36415; 71045; 74018; 74177; 80048; 80053; 80202; 81001; 83605; 83690; 83735; 84100; 84145; 85025; 86140; 87040; 87077; 87086; 87186; 87641; 87804; 93005; 93306; 94664; 96372; 96375; 99283; J0696; J0743; J1160; J1650; J2270; J2405; J3370; J3490; J7030; J7050; Q9967

== ENCOUNTER 2019-05-19 06:21 | Day surgery (SDC) | payer MEDICARE, SELFPAY ==
[2019-05-18 12:53] VITALS: BMI 32.5
[2019-05-19 06:33] VITALS: BP 132/84; PULSE 96; RESP 20; TEMP 36.5; O2SAT 98
[2019-05-19] MEDS: sodium chloride 0.9% 1,000 ML 30 ML (06:46)
--- NOTE | 2019-05-19 07:49 | W.PM.OPSUD ---
Surgery/Procedure H&P Update DATE OF PROCEDURE: May 19, 2019 DATE H&P PERFORMED: 05/02/19 H&P UPDATE INFORMATION: I have reviewed H&P completed within last 30 days, I have examined patient prior to procedure, No changes to prior documentation and H&P to be scanned into chart PREOP DIAGNOSIS: Screening colonoscopy PLANNED PROCEDURE: Operation Date: 05/19/19 08:00 Proposed Procedures p Colonoscopy(Not Applicable) - Ray Li MD
--- NOTE | 2019-05-19 08:03 | ANES.PREANE2 ---
Pre-Anesthetic Assessment Pre-Anesthetic Assessment: Height/Weight: Height 1.73 m Weight 97.069 kg Temp Pulse Resp BP Pulse Ox 97.7 F 96 20 H 132/84 98 05/19/19 06:33 05/19/19 06:33 05/19/19 06:33 05/19/19 06:33 05/19/19 06:33 Preop Diagnosis: Screening colonoscopy Proposed Procedure: Operation Date: 05/19/19 08:00 Proposed Procedures p Colonoscopy(Not Applicable) - Ray Li MD Was Beta Wilmar taken within 24 hours: Yes Social: Social History: No alcohol and No tobacco Exam: Pre-Anes Outpt Exam: alert, oriented x 3, clear to auscultation bilaterally and regular rate & rhythm Airway: Submandibular: WNL Cervical ROM: WNL MP: 2 Dentition: Full History/ROS: No significant history except as noted and No significant complaints Pulmonary: Comments: hx PE CV/HEM: CV/HEM: CAD and HTN : : None reported Hepatic: Hepatic: None reported GI: Comments: constipation Metabolic: Metabolic: None reported Musc/skel: Musc/skel: RA Neuropsych: Neuropsych: None reported Anesthetic Plan: ASA status: 3 Anesthesia: Anesthesia Evaluation and MAC Risk of > 500 ml blood loss (7ml/kg in children): No PFSH Anesthesia PFSH: Medical History (Updated 04/26/19 @ 10:14 by Yosi Hayes MD) Gout History of pulmonary embolism Will go on anticoagulation, secondary to atrial fibrillation Rheumatoid arteritis Rheumatoid arthritis Methotrexate held secondary to infection. Primary care provider to decide when restart should occur Surgical History (Updated 05/10/19 @ 11:22 by CARIDAD Dickerson) History of heart surgery S/P CABG x 4 Echocardiogram performed this hospital stay with EF of 50% Family History (Updated 05/10/19 @ 10:08 by Hattie Leung RN) Father CAD (coronary artery disease) Mother Cancer Hypertension Family/Other Dementia Stroke Denies family history of Diabetes Clotting disorder Hyperlipidemia Psychiatric illness Chronic kidney disease (CKD) Suicide Anesthesia complication Bleeding disorder Family history of premature coronary artery disease Lung disease Social History Smoking and tobacco status: never smoked Alcohol intake: current Alcohol intake frequency: 0-2 Drinks per Day Marital status: Data Anesthesia Cardiac Studies: No Data to Display
[2019-05-19 08:34] VITALS: BP 96/71; PULSE 72; RESP 16; O2SAT 93
[2019-05-19 08:41] VITALS: BP 108/77; PULSE 65; RESP 18; O2SAT 96
== END 2019-05-19 09:20 | disposition home or self-care (01) ==
PROVIDERS: Visit Provider Family Medicine
PROC: 0DJD8ZZ Inspection of Lower Intestinal Tract, Via Natural or Artificial Opening Endoscopic (ICD-10-PCS; CPT 45378; principal; 2019-05-19 08:00)
DX: Z12.11 Encounter for screening for malignant neoplasm of colon (principal); K57.30 Diverticulosis of large intestine without perforation or abscess without bleeding; E78.5 Hyperlipidemia, unspecified; Z79.01 Long term (current) use of anticoagulants; Z79.82 Long term (current) use of aspirin; I48.91 Unspecified atrial fibrillation; Z86.711 Personal history of pulmonary embolism; I25.10 Atherosclerotic heart disease of native coronary artery without angina pectoris; I10 Essential (primary) hypertension; M06.9 Rheumatoid arthritis, unspecified; Z95.1 Presence of aortocoronary bypass graft; Z82.49 Family history of ischemic heart disease and other diseases of the circulatory system; Z83.3 Family history of diabetes mellitus
CPT/HCPCS: 12345; G0121; J2704; J7030

== ENCOUNTER → 2019-07-12 09:12 | Outpatient (BNVA) | payer MEDICARE, SELFPAY | PROVIDERS: Visit Provider Urology | DX: N41.0 Acute prostatitis (principal); N39.0 Urinary tract infection, site not specified; N40.1 Benign prostatic hyperplasia with lower urinary tract symptoms | CPT/HCPCS: 81001 ==

== ENCOUNTER → 2019-11-01 13:48 | Outpatient (BNVA) | payer MEDICARE, SELFPAY | PROVIDERS: PCP Physician Assistant; Visit Provider Urology | DX: N40.1 Benign prostatic hyperplasia with lower urinary tract symptoms (principal); N39.0 Urinary tract infection, site not specified; R97.20 Elevated prostate specific antigen [PSA]; Z12.5 Encounter for screening for malignant neoplasm of prostate | CPT/HCPCS: 81001 ==

== ENCOUNTER → 2019-12-07 08:55 | Outpatient (BNVA) | payer MEDICARE, SELFPAY | PROVIDERS: PCP Physician Assistant; Visit Provider Internal Medicine Cardiovascular Disease | DX: I48.0 Paroxysmal atrial fibrillation (principal); E78.5 Hyperlipidemia, unspecified | CPT/HCPCS: 80061; 80076; 80162; 82565; 83735; 84132; 84443 ==

== ENCOUNTER → 2020-10-30 09:19 | Outpatient (BNVA) | payer MEDICARE, SELFPAY | PROVIDERS: PCP Physician Assistant; Visit Provider Urology | DX: R97.20 Elevated prostate specific antigen [PSA] (principal); N40.1 Benign prostatic hyperplasia with lower urinary tract symptoms | CPT/HCPCS: 81003; 84153 ==

== ENCOUNTER → 2021-05-01 09:26 | Outpatient (BNVA) | payer MEDICARE, SELFPAY | PROVIDERS: PCP Physician Assistant; Visit Provider Urology | DX: N40.1 Benign prostatic hyperplasia with lower urinary tract symptoms (principal); R97.20 Elevated prostate specific antigen [PSA]; Z87.440 Personal history of urinary (tract) infections | CPT/HCPCS: 81003; 84153 ==

== ENCOUNTER → 2021-07-16 11:07 | Outpatient (BNVA) | payer MEDICARE, SELFPAY | PROVIDERS: PCP Physician Assistant; Visit Provider Internal Medicine Cardiovascular Disease | DX: I25.10 Atherosclerotic heart disease of native coronary artery without angina pectoris (principal); I10 Essential (primary) hypertension; I48.0 Paroxysmal atrial fibrillation; Z95.1 Presence of aortocoronary bypass graft; M06.9 Rheumatoid arthritis, unspecified; E78.5 Hyperlipidemia, unspecified | CPT/HCPCS: 80053; 80061; 83721; 84439; 84443; 84481; 85025; 99214 ==

== ENCOUNTER → 2022-01-14 15:10 | Outpatient (BNVA) | payer MEDICARE, SELFPAY | PROVIDERS: PCP Physician Assistant; Visit Provider Internal Medicine Cardiovascular Disease | DX: I25.10 Atherosclerotic heart disease of native coronary artery without angina pectoris (principal); I10 Essential (primary) hypertension; I48.0 Paroxysmal atrial fibrillation; Z95.1 Presence of aortocoronary bypass graft; E78.5 Hyperlipidemia, unspecified; I65.23 Occlusion and stenosis of bilateral carotid arteries; H34.212 Partial retinal artery occlusion, left eye; M06.9 Rheumatoid arthritis, unspecified; Z79.01 Long term (current) use of anticoagulants | CPT/HCPCS: 99214 ==

== ENCOUNTER 2022-01-20 07:44 | Outpatient (CLI) | payer MEDICARE, SELFPAY ==
[2022-01-20 08:07] VITALS: BMI 29.3
--- NOTE | 2022-01-20 09:07 | NMCV_ITS ---
NM ninfa perf SPECT r/s* [id number] Michael Christian Age: 76 Gender: M : 1945 Exam Date: 01/20/2022 09:07 Ordering Phys: Sachi Schafer MD ([email or web address]) Technologist: JOSEFINA Ribeiro Exam Location: [facility] Indications: ATHEROSCLEROTIC HEART DISEASE OF [place] CORONARY ARTERY STRESS TEST Please see separate stress test report in [facility] for full findings IMAGE PROTOCOL Rest/Stress 1 Lexiscan Day Radiopharmaceutical Dose (mCi) Administration Site Administered by Rest: Tc-99m 10.1 IV JOSEFINA Joya Sestamibi Stress:Tc-99m 32.4 IV JOSEFINA Joya Sestamibi Rest: 20-Jan-2022 60 Discovery 630 Stress: 20-Jan-2022 30 Discovery 630 0.4mg Lexiscan. Images obtained in supine and prone position. SPECT RESULTS Technical Quality: Excellent Raw Data Analysis: Normal Image Corrections: No attenuation or motion correction applied Summed Stress Score: 4 Summed Rest Score: 3 Summed Difference Score: 2 PERFUSION FINDINGS Small sized perfusion abnormality of mild severity of basal to mid inferior wall and mid inferolateral wall on rest images with mild reversibility in basal to mid inferior wall on stress images. FUNCTIONAL RESULTS (calculated via Gated SPECT) Stress Image LV EF (%): 61 Stress EDV (mL):135 TID: 0.99 Stress ESV (mL):52 FUNCTIONAL FINDINGS: The left ventricle is normal in size. Transient Ischemia Dilatation of 0.99. The left ventricular ejection fraction is normal with a value of 61%. There is normal left ventricular wall thickening. IMPRESSIONS 1. Small sized partially reversible perfusion abnormality of mild severity of basal to mid inferior talley. 2. This may represent small area of ischemia in right coronary artery. 3. Overall left ventricular systolic function is normal without regional wall motion abnormalities, LVEF=61%. 4. EKG portion of the study will be reported separately. Sachi Schafer MD (Electronically Signed) Final Date: 23 January 2022 11:23 S
--- NOTE | 2022-01-20 09:07 | ECG_ITS ---
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 Interpretive Statements NAME OF STUDY: LEXISCAN SESTAMIBI STRESS TEST INDICATION: CAD/AFIB/Chest pain PROCEDURE: At the baseline, the blood pressure was 143/82 mm Hg with a heart rate of 78 bpm. The electrocardiogram showed atrial fibrillation, normal axis and minimal ST depression. The Lexiscan was infused over a period of 20 seconds. A total of 0.4 milligrams of Lexiscan was infused. The stress phase was continued for a total of 5 minutes. Heart rate at the end of the stress phase was 80 bpm with a blood pressure of 127/73 mm Hg. The EKG at the peak infusion revealed atrial fibrillation with no significant ST-T wave changes. The study was terminated due to protocol completion. Sestamibi was injected 20 seconds after the Lexiscan infusion. Blood pressure at the end of the recovery phase was 130/76 mm Hg with a heart rate of 77 beats per minute. CONCLUSION: 1. No significant EKG changes with the LexiScan infusion. 2. No LexiScan induced chest pain or cardiac arrhythmia. 3. Normal blood pressure and heart rate response. 4. Sestamibi/sestamibi perfusion scan pending; see separate report. Electronically Signed On 01-26-2022 22:02:40 [employer] by Sachi Schafer M.D. [email or web address]
[2022-01-20] MEDS: regadenoson 0.4 Mg/5 ml Syringe IVP (09:36)
[2022-01-20 10:16] VITALS: BP 130/76; PULSE 83
== END 2022-01-20 07:45 | disposition home or self-care (01) ==
PROVIDERS: PCP Physician Assistant; Visit Provider Internal Medicine Cardiovascular Disease
DX: I25.10 Atherosclerotic heart disease of native coronary artery without angina pectoris (principal); I48.91 Unspecified atrial fibrillation; R07.9 Chest pain, unspecified; R06.02 Shortness of breath
CPT/HCPCS: 78452; 93017; A9500; J2785

== ENCOUNTER 2022-02-20 06:03 | Outpatient (CLI) | payer MEDICARE, SELFPAY ==
--- NOTE | 2022-02-20 06:30 | USCV_ITS ---
ChristianMichael ponce Age: 76 Gender: M : 1945 Exam Date: 02/20/2022 06:16 Ordering Phys: Sachi Schafer MD ([email or web address]) Technologist: MICHAEL Exam Location: [facility] [place] Indication: Bialteral Carotid Stenosis Risk Factors: Previous Vascular Surgery: Right Brachial BP: / Left Brachial BP: / Right Left Velocity (cm/s) Spectral Plaque Velocity (cm/s) Spectral Plaque Syst/Diast Broadening Syst/Diast Broadening 62.80/ 23.20 Hetro Prox CCA 85.40 / 24.10 79.40/ 16.50 Hetro Mid CCA 77.70 / 27.20 77.20/ 18.70 Distal CCA 64.50 / 25.60 Hetro 99.20/ 24.30 Hetro Prox ICA 86.20 / 25.60 Hetro 99.20/ 27.60 Hetro Mid ICA 82.30 / 27.20 104.70/22.10 Hetro Distal ICA 83.10 / 32.60 46.30 ECA 72.20 1.32 ICA/CCA 1.01 Antegrade Vertebral Antegrade 28.70/ 7.80 cm/s 23.10/ 3.80 cm/s Tri Subclavian Tri 47.40 127.4 0 FINDINGS Comparison: none available. No significant elevation of systolic or diastolic velocities. Diffuse, moderate bilateral scattered calcified plaque and intimal thickening throughout the common carotid arteries and extending through the bifurcation. Antegrade vertebral arteries. CONCLUSIONS Bilateral ICA stenosis less than 50%. Diffuse moderate atherosclerotic plaque. Dr. Diane De La Rosa DO (Electronically Signed) Final Date: 20 February 2022 07:17 S
== END 2022-02-20 06:04 | disposition home or self-care (01) ==
LOC: RAD 06:05
PROVIDERS: Visit Provider Internal Medicine Cardiovascular Disease
DX: I65.23 Occlusion and stenosis of bilateral carotid arteries (principal)
CPT/HCPCS: 93880

== ENCOUNTER 2022-04-23 13:08 | Outpatient (CLI) | payer MEDICARE, SELFPAY ==
[2022-04-23 14:19] LABS: Prostate Specific AG Urology 3.25 ng/mL (0-4)
== END 2022-04-23 13:09 | disposition home or self-care (01) ==
PROVIDERS: Visit Provider Urology
DX: N40.1 Benign prostatic hyperplasia with lower urinary tract symptoms (principal)
CPT/HCPCS: 36415; 84153

== ENCOUNTER → 2022-04-30 08:51 | Outpatient (BNVA) | payer MEDICARE, SELFPAY | PROVIDERS: Visit Provider Urology | DX: N40.0 Benign prostatic hyperplasia without lower urinary tract symptoms; R97.20 Elevated prostate specific antigen [PSA]; Z87.440 Personal history of urinary (tract) infections | CPT/HCPCS: 51798; 81003; 99213 ==

== ENCOUNTER → 2022-10-14 14:50 | Outpatient (BNVA) | payer MEDICARE, SELFPAY | PROVIDERS: Visit Provider Internal Medicine Cardiovascular Disease | DX: E78.5 Hyperlipidemia, unspecified (principal); I48.0 Paroxysmal atrial fibrillation; Z95.1 Presence of aortocoronary bypass graft; I25.10 Atherosclerotic heart disease of native coronary artery without angina pectoris; I10 Essential (primary) hypertension; H34.212 Partial retinal artery occlusion, left eye; M06.9 Rheumatoid arthritis, unspecified | CPT/HCPCS: 36415; 80053; 80061; 83721; 85025; 99214 ==

== ENCOUNTER → 2023-04-23 09:42 | Outpatient (BNVA) | payer MEDICARE, SELFPAY | PROVIDERS: Visit Provider Internal Medicine Cardiovascular Disease | DX: E78.5 Hyperlipidemia, unspecified (principal); Z95.1 Presence of aortocoronary bypass graft; Z86.711 Personal history of pulmonary embolism; I48.0 Paroxysmal atrial fibrillation; Z79.01 Long term (current) use of anticoagulants | CPT/HCPCS: 99214 ==

== ENCOUNTER → 2023-09-14 13:21 | Outpatient (BNVA) | payer MEDICARE, SELFPAY | PROVIDERS: Visit Provider Internal Medicine Cardiovascular Disease | DX: I48.0 Paroxysmal atrial fibrillation (principal); Z95.1 Presence of aortocoronary bypass graft; Z86.711 Personal history of pulmonary embolism; E78.5 Hyperlipidemia, unspecified; Z79.01 Long term (current) use of anticoagulants | CPT/HCPCS: 99213 ==

== ENCOUNTER → 2024-04-04 08:39 | Outpatient (BNVA) | payer MEDICARE, SELFPAY | PROVIDERS: Visit Provider Internal Medicine Cardiovascular Disease | DX: I25.10 Atherosclerotic heart disease of native coronary artery without angina pectoris (principal); Z95.1 Presence of aortocoronary bypass graft; I48.0 Paroxysmal atrial fibrillation; E78.5 Hyperlipidemia, unspecified; Z86.718 Personal history of other venous thrombosis and embolism; Z86.711 Personal history of pulmonary embolism; Z79.01 Long term (current) use of anticoagulants | CPT/HCPCS: 99214 ==